=== PATIENT | male | born 1970 | race Two or more races ===

== ENCOUNTER 2021-07-06 15:27 | Emergency (ER) | payer MEDICAID ==
[~2021-07-06] VITALS: Ht 177.8 cm; Wt 72.7 kg
[2021-07-06] MEDS ORDERED: TRAM50TA2 PO (18:39)
[2021-07-06] MEDS ORDERED: IBUP-1554 PO (18:39)
[2021-07-06 18:42] VITALS: BP 140/93
[2021-07-07] MEDS ORDERED: IBUP-2124 PO (13:14)
[2021-07-07] MEDS ORDERED: TRAM50TA2 PO (13:14)
== END 2021-07-06 19:03 | disposition home or self-care (01) ==
LOC: EMS 15:30
DX: G89.4 Chronic pain syndrome (principal); M25.571 Pain in right ankle and joints of right foot; M25.572 Pain in left ankle and joints of left foot; E11.9 Type 2 diabetes mellitus without complications; F15.90 Other stimulant use, unspecified, uncomplicated; F17.210 Nicotine dependence, cigarettes, uncomplicated; Z88.0 Allergy status to penicillin
CPT/HCPCS: 99283

== ENCOUNTER 2022-09-18 23:54 | Emergency (ER) | payer MEDICAID, OTHER ==
[~2022-09-18] VITALS: Ht 175.3 cm; Wt 77.3 kg
[~2022-09-18 23:54] MED LIST: IBUP-1554 PO; IBUP-2124 PO; TRAM50TA2 PO
[2022-09-19 00:10] VITALS: BP 157/99
[2022-09-19 00:21] LABS: GLUCOSE,POINT OF CARE 231 MG/DL (70-110)
== END 2022-09-19 02:01 | disposition left against medical advice (07) ==
LOC: EMS 23:56
DX: M79.671 Pain in right foot (principal); Z53.21 Procedure and treatment not carried out due to patient leaving prior to being seen by health care provider
CPT/HCPCS: 82962; 99281

== ENCOUNTER 2023-07-03 20:51 | Emergency (ER) | payer OTHER ==
[~2023-07-03] VITALS: Ht 177.8 cm; Wt 75.0 kg
[~2023-07-03 20:51] MED LIST changes: +EMPA10TA3 PO; -IBUP-1554 PO; -IBUP-2124 PO; +INSU100I56 SQ; +INSU100V52 SQ; +LISI-893 PO; +METF-446 PO; -TRAM50TA2 PO
[2023-07-03 21:06] VITALS: TEMP 98.4
[2023-07-04] MEDS ORDERED: DOXYCYCLINE HYCLATE 100 MG TABLET PO ONE (02:00)
[2023-07-04] MEDS ORDERED: INSULIN REGULAR, HUMAN 100 UNITS/ML SQ ONE (02:00)
[2023-07-04] MEDS ORDERED: OxyCODONE HCL/ACETAMINOPHEN 5-325 MG TABLET PO ONE (02:00)
[2023-07-04] MEDS ORDERED: CLINDAMYCIN HCL 150 MG CAPSULE PO ONE (02:15)
[2023-07-04] MEDS ORDERED: DOXY-354 PO (03:05)
[2023-07-04] MEDS ORDERED: CLIN-26 PO (03:05)
[2023-07-04 03:56] LABS: GLUCOMETER DEV NAME(LOC) ER.6; GLUCOSE,POINT OF CARE 168 MG/DL (70-110)
[2023-07-04 04:32] VITALS: BP 124/78; PULSE 65; RESP 16
[2023-07-04 06:56] LABS: GLUCOMETER DEV NAME(LOC) ERT.5; GLUCOSE,POINT OF CARE 388 MG/DL (70-110)
== END 2023-07-04 04:24 | disposition home or self-care (01) ==
LOC: EMS 20:56
DX: M25.472 Effusion, left ankle (principal); E11.9 Type 2 diabetes mellitus without complications; I10 Essential (primary) hypertension; F17.210 Nicotine dependence, cigarettes, uncomplicated; F15.90 Other stimulant use, unspecified, uncomplicated; F10.90 Alcohol use, unspecified, uncomplicated; Z98.890 Other specified postprocedural states; Z88.0 Allergy status to penicillin
CPT/HCPCS: 99284; 82962; 73600; 73620; 96372; J1815